=== PATIENT | male | born 1965 | race Caucasian/White ===

== ENCOUNTER 2020-02-23 05:50 | Outpatient (CLI) | payer OTHER, SELFPAY ==
[2020-02-23 16:38] LABS: SARS-CoV-2 RNA PCR Negative
== END 2020-02-23 05:51 | disposition home or self-care (01) ==
LOC: ANHCOVIDDT 05:51
PROVIDERS: Visit Provider Plastic Surgery
DX: Z01.818 Encounter for other preprocedural examination (principal); Z11.59 Encounter for screening for other viral diseases
CPT/HCPCS: 87635; C9803; U0003

== ENCOUNTER 2020-02-24 03:12 | Day surgery (SDC) | payer OTHER, SELFPAY ==
[2020-02-22 13:39] VITALS: BMI 35.0
[2020-02-24] VITALS (9 sets, daily range): BP systolic 124–158; BP diastolic 73–110; PULSE 66–88; RESP 13–17; TEMP 36.2–36.3; O2SAT 95–100
--- NOTE | 2020-02-24 07:08 | HP_ITS ---
DATE OF SERVICE: 02/24/2020 PREOPERATIVE DIAGNOSIS: Laceration of the extensor pollicis longus, zone 3. HISTORY: The patient is 54. He is a right-hand dominant male patient of Dr. Galicia. The patient lacerated the dorsum of his left thumb with a machete. He was at a friend's house. They were breaking up some wood for a bonfire. The machete was lodged into a stump and as he wrangled it free, it popped out and cut him across the dorsum of his thumb. The laceration was approximately 2 cm in length. He bandaged it himself and tried to care for himself. This injury occurred on February 11 or so. The skin wound has healed. He is unable to extend the interphalangeal joint. He has tried to continue working but finds it awkward and cannot control his thumb well. I have explained the problem of operating it at this late date. We could be faced with a significant problem if the proximal stump has retracted significantly. He says he feels some pain over the distal edge of the retinaculum. This may be reparable. It is possible the laceration has not retracted at all and may be lingering around the extensor anthony. It is also possible that we would not be able to do a primary repair in which case we would do an extensor indicis proprius transfer. We have discussed the idea that there would be another incision and some additional recovery if this were done. At any rate, he will be in a splint and would not be allowed use of this digit for up to 6 weeks and will require therapy. Other risks include rupture of the repaired tendon, infection, numbness of the dorsum of the index or thumb. We have elected to do this under general anesthesia. ALLERGIES: HE HAS NO KNOWN ALLERGIES TO MEDICATIONS. MEDICATIONS: He takes low-dose aspirin and [id number] Zyrtec for allergies. PAST SURGICAL HISTORY: Prior surgeries include ankle surgery in 1994, some wrist reconstruction in 2001 on the same hand. Cardiac stent in 2007 and 4 stents in 2019. SOCIAL HISTORY: He is a nonsmoker. He has some high blood pressure. He has a history of a heart attack. REVIEW OF SYSTEMS: Indicates that he is obese at 5' 8 , 230 pounds, but has no other complaints. FAMILY HISTORY: Noncontributory. SOCIAL HISTORY: He lives in [place]. Works for [employer]. PHYSICAL EXAMINATION: GENERAL: He is a very alert, very agreeable, animated, adult male in no distress. HEENT: Unremarkable. CHEST: Clear to auscultation. HEART: Regular rate and rhythm by palpation. ABDOMEN: Soft, nontender. EXTREMITIES: Appear normal with the exception of the left thumb which extends at the CMC joint, but not at the MP or IP joints. The laceration lies just proximal to the MP joint and is healed. We are not able to palpate the extensor pollicis longus when he attempts to animate that. ASSESSMENT: Laceration of extensor pollicis longus. PLAN: Delayed primary repair, possible index extensor tendon transfer. The patient will remain on his aspirin D I MT: Gabby MARTI
[2020-02-24] MEDS: LACTATED RINGERS 1,000 ML 30 ML IV CONT ×2 (08:10→11:26)
--- NOTE | 2020-02-24 08:12 | WPDANESEPPF ---
Anes - Initial Pre Proc Eval Procedure: Operation Date: 02/24/20 09:30 Proposed Procedures p Delayed Primary Repair of Extensor Pollicis Longus Left Thumb, Possible Extensor tendon Transfer - Asael Benedict MD Date/Time: 02/24/20 08:12 Surgeon: Asael Benedict MD Pre Op Diagnosis: laceration of extensor Polysis longus left thumb z Patient Data Age: 54 Gender: M Height: 5 ft 8 in Weight: 104.5 kg Last Vital Signs Temp 36.3 C L 02/24/20 07:30 Pulse 75 02/24/20 07:30 Resp 15 02/24/20 07:30 BP 158/108 H 02/24/20 07:30 Pulse Ox 99 02/24/20 07:30 Allergies Allergy/AdvReac Type Severity Reaction Status Date / Time No Known Allergies Allergy Mild Verified 02/22/20 13:37 Home Medications Medication Instructions Recorded Confirmed Type aspirin [Aspir-81] 81 mg PO DAILY 02/22/20 02/22/20 History cetirizine [Zyrtec] 10 mg PO DAILY PRN 02/22/20 02/22/20 History Patient hx anesthesia problems: none Family hx anesthesia problems: none [facility] Past Medical History Medical History CAD (coronary artery disease) ALEA (obstructive sleep apnea) Surgical History Surgical History Stented coronary artery Anes - Eval Final PreProcedure Day of Procedure 02/24/20 08:12 Patient weight: obese Heart: regular rate and rhythm Lungs: decreased breath sounds Airway: Mallampati scale class II Neurological: alert and oriented Last oral intake: >/= 8 hours ASA classification: III Emergent: no Anesthetic plan: proceed Anesthesia type and monitoring: general LMA and standard monitoring Informed Consent: The patient's anesthetic plan and its attendant risks and benefits were discussed with the patient/family/POA. Questions were solicited and answers provided to the satisfaction of the patient/family/POA.
--- NOTE | 2020-02-24 08:18 | SUR.PREOP ---
0823- Notified Dr Wells of pt's elevated blood pressure
--- NOTE | 2020-02-24 10:04 | WPDHPUPDATE1 ---
History and Physical Update Update Date/Time: 02/24/20 10:04 History and Physical has been reviewed, including an updated exam of the patient. There are NO changes in the patient's condition. Risks, benefits, and alternatives have been discussed and questions answered. Patient agrees to proceed with procedure.
[2020-02-24] MEDS: LIDO 1%/EPINEPHRINE 1:100,000 20 ML VIAL 5 ML INFILTRATE (10:53)
--- NOTE | 2020-02-24 11:39 | P.OPB_ITS ---
Procedure Note - Brief Procedure Note - Brief Date of procedure: 02/24/20 Pre-op diagnosis: laceration of extensor Polysis longus left thumb z Laceration of left extensor pollicis longus, zone 2. Post-op diagnosis: same Procedure performed: Delayed primary repair of left EPL in zone 2. Anesthesia: GLMA and local Surgeon: Asael Benedict MD Kitchen Runner: Luz Elena Estimated blood loss (mL): 2 Tourniquet time (min): 45 Drains: No Packing: No Pathology: none sent Complications: No immediate complications Condition: stable Disposition: PACU
--- NOTE | 2020-02-24 11:53 | PM.PROC ---
Procedure Note - Detailed Date of procedure: 02/24/20 Pre-op diagnosis: laceration of extensor Polysis longus left thumb z Laceration of the extensor pollicis longus left hand, zone 3. Post-op diagnosis: other ( Laceration of the extensor pollicis longus and extensor pollicis brevis left thumb zone 3) Procedure performed: Delayed primary repair of the left extensor pollicis longus in zone 3 Description of procedure: The appropriate site on the left hand was marked with the patient in preop. He was taken to the operating room and placed supine on the operating table. A time-out was held and confirmed. He was given general anesthesia with an LMA. Extremety was prepped and draped in usual fashion. The site for incision over the extensor pollicis longus was marked. This area was locally infiltrated with 1% lidocaine with epinephrine.The tourniquet was inflated to 250 mmHg and was Up for 45 minutes. The incision was made over the metacarpophalangeal joint. The distal stump of the tendon was identified. Additional incisions were made there to allow elevation of an adequate skin flap. The extensor tendon was mobilized approximately 1-1/2 cm. Proximally the incision was directed toward the distal edge of the extensor retinaculum. The extensor pollicis longus was identified in its sheath. Extensor pollicis brevis had remained attached to that and was looped back into the 3rd dorsal compartment. The proximal stup was also mobilized until it could easily be extended to the site of laceration. With the wrist in approximately 30? of extension the repair could be made without undue tension. The proximal tendon end was debrided approximately 3 mm of ragged end . The repair was performed with 3-0 FiberWire creating a 4 strand repair with locking bites. This also brought the extensor pollicis brevis out to length. Metacarpophalangeal and IP joint range of motion were easily demonstrated while holding at least 1 joint in extension at a time. The skin wound was closed with running 5 0 nylon suture. A bulky gauze bandage with thumb spica splint was applied. The wrist was in 30? of extension, the IP joint was in extension and the metacarpophalangeal joint was in a neutral position. 0.25% Marcaine with epinephrine was infiltrated in this region prior to application of the dressing. The patient did not receive IV antibiotics. He is discharged home with instructions in wound care and follow-up and a prescription for Hydrocodone . Surgeon: Asael Benedict MD
== END 2020-02-24 13:21 | disposition home or self-care (01) ==
PROVIDERS: PCP Family Medicine Adolescent Medicine; Visit Provider Plastic Surgery
PROC: (CPT 26418; principal; 2020-02-24 09:30)
DX: S66.222A Laceration of extensor muscle, fascia and tendon of left thumb at wrist and hand level, initial encounter (principal); W26.0XXA Contact with knife, initial encounter; I10 Essential (primary) hypertension; I25.2 Old myocardial infarction; I25.10 Atherosclerotic heart disease of native coronary artery without angina pectoris; G47.33 Obstructive sleep apnea (adult) (pediatric); E66.9 Obesity, unspecified; Z68.33 Body mass index [BMI] 33.0-33.9, adult; Z95.5 Presence of coronary angioplasty implant and graft; Z79.82 Long term (current) use of aspirin
CPT/HCPCS: 26418; J0131; J1644; J2250; J2405; J2704; J3010; J7120